=== PATIENT | male | born 1960 | race Caucasian/White ===

== ENCOUNTER 2016-09-13 19:48 | Emergency (ER) | payer OTHER ==
--- NOTE | ~2016-09-13 | EKG ---
PATIENT: ED BLAS UNIT #: [id number] Ventricular Rate: 86 BPM Atrial Rate: 86 BPM P-R Interval: 152 ms QRS Duration: 96 ms Q-T Interval: 354 ms QTC Calculation(Bezet): 423 ms P [place]: 61 degrees Calculated R [place]: 14 degrees Calculated T [place]: 35 degrees Diagnosis Line: Normal sinus rhythm Diagnosis Line: Possible Left atrial enlargement Diagnosis Line: Borderline ECG Diagnosis Line: No previous ECGs available Diagnosis Line: Confirmed by RUCHI HAYWOOD MD ([id number]) on Diagnosis Line: 09/14/2016 8:23:02 AM INTERPRETING MD: YOBANY KENNEDY
[~2016-09-13 19:48] MED LIST: ROBITUSSIN15 MG PO
[2016-09-13 20:48] LABS: BASOPHIL# 0.1 X10e3 (0-0.3); BASOPHIL% 0.9 % (0-2.5); EOSINOPHIL# 0.2 X10e3 (0-0.7); EOSINOPHIL% 1.9 % (0.0-7.0); LYMPHOCYTE# 2.3 X10e3 (1.0-3.5); LYMPHOCYTE% 24.1 % (17.0-45.0); MEAN CELL VOLUME 101.5 FL (83-96); MEAN CORPUSCULAR HGB CONC 33.5 g/dL (30-36); MEAN PLATELET VOLUME 7.5 FL (6.5-11.5); MONOCYTE# 0.9 X10e3 (0-1.0); NEUTROPHIL# 6.1 X10e3 (1.5-7.1); NEUTROPHIL% 64.1 % (40-75); PLATELET COUNT 230 X10e3 (140-420); RED BLOOD COUNT 4.13 X10e (3.90-5.60); RED CELL DISTRIBUTION WIDTH 14.1 % (11.0-15.5); WHITE BLOOD COUNT 9.6 X10e3 (4.0-10.5)
[2016-09-13 20:49] LABS: DIFF IND NO
[2016-09-13 21:08] LABS: BUN/CREATININE RATIO 10.76; CALCIUM SERUM 8.9 mg/dL (8.4-10.2); CREATININE SERUM 1.3 mg/dL (0.6-1.4); GLOM FILT RATE Estimated 61.4 mL/min (>60); POTASSIUM 4.5 mmol/L (3.5-5.1)
== END 2016-09-13 21:56 | disposition home or self-care (01) ==
LOC: CED 19:48
PROVIDERS: Emergency Medicine
DX: F19.180 Other psychoactive substance abuse with psychoactive substance-induced anxiety disorder (principal); F17.200 Nicotine dependence, unspecified, uncomplicated
CPT/HCPCS: 36415; 80048; 82947; 85025; 93005; 99284